=== PATIENT | male | born 1975 | race Caucasian/White ===

== ENCOUNTER 2021-08-14 09:32 | Emergency (ER) | payer OTHER ==
[~2021-08-14] VITALS: Ht 175.3 cm; Wt 84.8 kg
[2021-08-14] MEDS ORDERED: NEXIUM5 MG PO (09:43)
[2021-08-14] MEDS ORDERED: DIAZEPAM2 MG PO (10:30)
== END 2021-08-14 10:42 | disposition home or self-care (01) ==
LOC: ER 09:32
DX: G47.00 Insomnia, unspecified (principal); F41.9 Anxiety disorder, unspecified